=== PATIENT | male | born 1985 | race Caucasian/White ===

== ENCOUNTER 2017-02-16 20:41 | Emergency (ER) | payer SELFPAY ==
[~2017-02-16] VITALS: Ht 172.7 cm; Wt 82.0 kg
[2017-02-16] MEDS ORDERED: LANTUS2P SQ (21:11)
[2017-02-16] MEDS ORDERED: HUMA100I3 SQ (21:11)
[2017-02-16 21:13] VITALS: BP 141/87; PULSE 88; RESP 16; TEMP 98.6; O2SAT 98
--- NOTE | 2017-02-16 22:30 | PD ---
HPI Chief Complaint: Psychiatric Symptoms Time Seen by Provider: 22:00 Travel History International Travel<30 days: No Contact w/Intl Traveler<30days: No Traveled to known affect area: No History of Present Illness HPI Patient is a 31-year-old male who presents to emergency room for evaluation of suicidal evaluations. Patient reports that he posted a suicidal comment on Facebook today, reports that he was trying to get a reaction from someone. Reports that someone else ended up calling the police and he was brought to ER under Sanders act for psychiatric evaluation. Patient reports "I really don't want to hurt myself." Reports that the only drugs he uses is marijuana. PFSH Past Medical History Diabetes: Yes Patient Takes Glucophage: No Thyroid Disease: Yes (hypothyroid) Influenza Vaccination: No Social History Alcohol Use: No Tobacco Use: Yes Substance Use: Yes Allergies-Medications (Allergen,Severity, Reaction): Coded Allergies: No Known Allergies (Unverified , 02/16/17) Reported Meds & Prescriptions Reported Meds & Active Scripts Active Reported Humalog Kwikpen Pen Inj (Insulin Lispro (Human) Inj) 300 Unit/3 Ml Pen Unknown Dose SQ ACHS SLIDING SCALE Lantus Inj (Insulin Glargine) 1,000 Unit/10 Ml Vial 25 Units SQ BID Review of Systems General / Constitutional: No: Fever Eyes: No: Visual changes HENT: No: Headaches Cardiovascular: No: Chest Pain or Discomfort Respiratory: No: Shortness of Breath Gastrointestinal: No: Abdominal Pain Genitourinary: No: Dysuria Musculoskeletal: No: Pain Skin: No Rash Neurologic: No: Weakness Psychiatric: No: Depression, Suicidal Ideations, Homicidal Ideation Endocrine: No: Polydipsia Hematologic/Lymphatic: No: Easy Bruising Physical Exam Narrative GENERAL: NAD, Nontoxic SKIN: Focused skin assessment warm/dry. HEAD: Atraumatic. Normocephalic. EYES: Pupils equal and round. No scleral icterus. No injection or drainage. ENT: No nasal bleeding or discharge. Mucous membranes pink and moist. NECK: Trachea midline. No JVD. CARDIOVASCULAR: Regular rate and rhythm. No murmur appreciated. RESPIRATORY: No accessory muscle use. Clear to auscultation. Breath sounds equal bilaterally. GASTROINTESTINAL: Abdomen soft, non-tender, nondistended. Hepatic and splenic margins not palpable. MUSCULOSKELETAL: No obvious deformities. No clubbing. No cyanosis. No edema. NEUROLOGICAL: Awake and alert. No obvious cranial nerve deficits. Motor grossly within normal limits. Normal speech. PSYCHIATRIC: Appropriate mood and affect; insight and judgment normal. Denies suicidal or homicidal ideation Data Data Last Documented VS Vital Signs Date Time Temp Pulse Resp B/P Pulse Ox O2 Delivery O2 Flow Rate FiO2 02/16/17 21:13 98.6 88 16 141/87 98 Room Air Orders Complete Blood Count With Diff (02/16/17 22:00) Comprehensive Metabolic Panel (02/16/17 22:00) Psych Screen (02/16/17 22:00) Drug Screen, Random Urine (02/16/17 22:00) Alcohol (Ethanol) (02/16/17 22:00) Salicylates (Aspirin) (02/16/17 22:00) Tylenol (Acetaminophen) (02/16/17 22:00) MDM Medical Decision Making Medical Screen Exam Complete: Yes Emergency Medical Condition: Yes Interpretation(s) Vital Signs Date Time Temp Pulse Resp B/P Pulse Ox O2 Delivery O2 Flow Rate FiO2 02/16/17 21:13 98.6 88 16 141/87 98 Room Air Differential Diagnosis Differential includes depression, drug abuse Narrative Course Patient is a 31-year-old male who presents to emergency room under sanders act as he made a suicidal comment on Facebook today. Patient denies si at this time. Psychiatric screening labs ordered. Once medically cleared, will clear patient for psychiatric evaluation Anabel Jensen DO Feb 16, 2017 22:30
[2017-02-16 22:34] LABS: AUTOMATED NEUTROPHIL # 4.8 TH/MM3 (1.8-7.7); BASOPHIL # 0.1 TH/MM3 (0-0.2); BASOPHIL % 1.2 % (0.0-2.0); EOSINOPHIL # 0.4 TH/MM3 (0-0.4); EOSINOPHIL % 5.3 % (0.0-4.0); HEMO FLAGS DIFF FINAL; LYMPH % 28.6 % (9.0-44.0); LYMPHOCYTE # 2.3 TH/MM3 (1.0-4.8); MEAN CELL VOLUME 92.5 FL (80.0-100.0); MEAN CORPUSCULAR HEMOGLOBIN 32.3 PG (27.0-34.0); MEAN CORPUSCULAR HGB CONC 34.9 % (32.0-36.0); NEUT % 58.9 % (16.0-70.0); PLATELET COUNT 248 TH/MM3 (150-450); RED BLOOD COUNT 5.19 MIL/MM3 (4.50-5.90); RED CELL DISTRIBUTION WIDTH 14.2 % (11.6-17.2); WHITE BLOOD COUNT 8.2 TH/MM3 (4.0-11.0)
[2017-02-16 22:46] LABS: ALT (GPT) 23 U/L (12-78); ANION GAP 10 MEQ/L (5-15); AST (GOT) 22 U/L (15-37); BICARBONATE 30.3 MEQ/L (21.0-32.0); BLOOD UREA NITROGEN 23 MG/DL (7-18); CHLORIDE 97 MEQ/L (98-107); GLOMERULAR FILTRATION RATE 60 ML/MIN (>89); POTASSIUM 4.1 MEQ/L (3.5-5.1); SODIUM (NA) 137 MEQ/L (136-145)
[2017-02-16 22:50] LABS: ALKALINE PHOSPHATASE 75 U/L (45-117); TOTAL BILIRUBIN ADULT 0.8 MG/DL (0.2-1.0)
[2017-02-16 22:56] LABS: ACETAMINOPHEN LESS THAN 2.0 MCG/ML (10.0-30.0)
[2017-02-17] MEDS ORDERED: INSULIN HUMAN REGULAR 1,000 UNITS/10 ML VIAL SQ ONE (00:30)
[2017-02-17 00:53] LABS: AMPHETAMINE, URINE NEG (NEG); BARBITURATES, URINE NEG (NEG); COCAINE, URINE NEG (NEG)
[2017-02-17 03:10] VITALS: BP 137/79; PULSE 80; RESP 16; O2SAT 99
[2017-02-17 06:00] VITALS: BP 113/56; PULSE 71; RESP 16; O2SAT 99
[2017-02-17 10:47] VITALS: BP 125/75; PULSE 73; RESP 18; TEMP 97.1; O2SAT 99
[2017-02-17] MEDS ORDERED: INSULIN NovoLIN REGULAR SUPPLEMENTAL SCALE SQ SCH ×2 (11:15→16:00)
--- NOTE | 2017-02-17 13:55 | PD ---
History of Present Illness Chief Complaint: Psychiatric Symptoms Time Seen by Provider: 13:40 Travel History International Travel<30 Days: No Contact w/Intl Traveler<30days: No Known affected area: No Legal Status Legal Status: Sanders Act Sanders Act Signed By: Elaine Whitaker History of Present Illness: History of Present Illness HPI Patient is a 31-year-old male with previous reported psychiatric history of ADHD and depression who presents to emergency room under a Sanders Act initiated by RYAN. The BA alleges that he stated he was depressed about a female and that he posted suicidal messages on social media. The patient was monitored in [facility] and presented no suicidality or no behavioral concerns. he ate well and slept well. EMR is reviewed. No previous contact with [facility] psychiatry dept. Current toxicology is positive for cannabinoids. Patient is seen with Jackie HARDING present. He is alert adn oriented, calm and cooperative. speech is clear and logical. There is no indication that he is experiencing any hallucinations, no delusions and no paranoia. He denies any acute psychiatric symptoms. No depression or anxiety. He states " I was trying to get a reaction out of someone and I got the wrong reaction. I don't want to ". Patient is future oriented and wants to be discharged. he is working and wants to be able to return to work. He has ended the relationship that he sent the messages to . " I deleted her contact information and I am ready to move on ". ED note is reviewed and he reported the same info to ED providers. In terms of previous psychiatric treatment reports that he was treated as a child for ADHD and has taken Prozac and Xanax in the past. He has not been in treatment in at least 3 years. PFSH Past Medical History Diabetes: Yes Patient Takes Glucophage: No Thyroid Disease: Yes (hypothyroid) Influenza Vaccination: No Psychiatric History Psychiatric History Hx Psychiatric Treatment: HX: DEPRESSION History of Inpatient Treatment: No Guns or firearms in home: No Social History Single male. Lives with his boss. 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 Hx Alcohol Use: No Hx Tobacco Use: Yes Hx Substance Use: No Substance Use Type: Marijuana Hx of Substance Use Treatment: No Family Psychiatric History Negative Allergies-Medications (Allergen,Severity, Reaction): Coded Allergies: No Known Allergies (Unverified , 02/16/17) Reported Meds & Prescriptions Reported Meds & Active Scripts Active Reported Humalog Kwikpen Pen Inj (Insulin Lispro (Human) Inj) 300 Unit/3 Ml Pen Unknown Dose SQ ACHS SLIDING SCALE Lantus Inj (Insulin Glargine) 1,000 Unit/10 Ml Vial 25 Units SQ BID Review of Systems Except as stated in HPI: all other systems reviewed are Neg Exam Alert: Yes [place]: Person Mood: Calm Affect: Appropriate Eye Contact: Normal Memory Intact: Comment (No impairmetn) Hallucinations: Other (negative) Delusions: No Suicidal: Ideation (Negative) Homicidal: Ideation (Negative) Insight/Judgement Fair. Not impaired. MDM Medical Decision Making Medical Record Reviewed: Yes Assessment/Plan 31 year old male who presents under a BA after he allegedly made some statements on social media indicating he was suicidal in an attempt at getting a reaction from a girlfriend. He denies that he was suicidal and he has not presented any suicidality while here in [facility]. At this time the patient does not meet criteria for BA. The BA will be lifted and he will be discharged. Instructed to return to ED if any changes. Orders Complete Blood Count With Diff (02/16/17 22:00) Comprehensive Metabolic Panel (02/16/17 22:00) Psych Screen (02/16/17 22:00) Drug Screen, Random Urine (02/16/17 22:00) Alcohol (Ethanol) (02/16/17 22:00) Salicylates (Aspirin) (02/16/17 22:00) Tylenol (Acetaminophen) (02/16/17 22:00) Insulin Human Regular Inj (Novolin R Inj (02/17/17 00:30) Diet Diabetic (02/17/17 Breakfast) Insulin Human Reg Supp Scale (Novolin R (02/17/17 16:00) Insulin Human Reg Supp Scale (Novolin R (02/17/17 11:15) Diet Diabetic (02/17/17 Lunch) Results Vital Signs Date Time Temp Pulse Resp B/P Pulse Ox O2 Delivery O2 Flow Rate FiO2 02/17/17 10:47 97.1 73 18 125/75 99 Room Air 02/17/17 06:00 71 16 113/56 99 Room Air 02/17/17 03:10 80 16 137/79 99 Room Air 02/16/17 21:13 98.6 88 16 141/87 98 Room Air Laboratory Tests Test 02/16/17 02/17/17 22:15 00:30 White Blood Count 8.2 Red Blood Count 5.19 Hemoglobin 16.8 Hematocrit 48.0 Mean Corpuscular Volume 92.5 Mean Corpuscular Hemoglobin 32.3 Mean Corpuscular Hemoglobin 34.9 Concent Red Cell Distribution Width 14.2 Platelet Count 248 Mean Platelet Volume 8.5 Neutrophils (%) (Auto) 58.9 Lymphocytes (%) (Auto) 28.6 Monocytes (%) (Auto) 6.0 Eosinophils (%) (Auto) 5.3 Basophils (%) (Auto) 1.2 Neutrophils # (Auto) 4.8 Lymphocytes # (Auto) 2.3 Monocytes # (Auto) 0.5 Eosinophils # (Auto) 0.4 Basophils # (Auto) 0.1 CBC Comment DIFF FINAL Differential Comment Sodium Level 137 Potassium Level 4.1 Chloride Level 97 Carbon Dioxide Level 30.3 Anion Gap 10 Blood Urea Nitrogen 23 Creatinine 1.40 Estimat Glomerular Filtration 60 Rate Random Glucose 313 Calcium Level 9.4 Total Bilirubin 0.8 Aspartate Amino Transf 22 (AST/SGOT) Alanine Aminotransferase 23 (ALT/SGPT) Alkaline Phosphatase 75 Total Protein 8.1 Albumin 4.2 Salicylates Level 2.7 Acetaminophen Level LESS THAN 2.0 Ethyl Alcohol Level LESS THAN 3 Urine Opiates Screen NEG Urine Barbiturates Screen NEG Urine Amphetamines Screen NEG Urine Benzodiazepines Screen NEG Urine Cocaine Screen NEG Urine Cannabinoids Screen POS Diagnosis Primary Impression: Adjustment disorder Psychiatrically Cleared: Yes Departure Forms: Tests/Procedures Patient Instructions: General Instructions, Stress (ED) Disposition: 01 DISCHARGE HOME Problem Qualifiers Primary Impression: Adjustment disorder Qualified Code: F43.20 - Adjustment disorder, unspecified type Sunni Lawrence Feb 17, 2017 13:55
== END 2017-02-17 14:26 | disposition home or self-care (01) ==
LOC: NEDAMB 20:41 → NEPJ 02-17 14:26
DX: F43.20 Adjustment disorder, unspecified (principal); E11.9 Type 2 diabetes mellitus without complications; E03.9 Hypothyroidism, unspecified; F32.9 Major depressive disorder, single episode, unspecified; F90.9 Attention-deficit hyperactivity disorder, unspecified type; Z79.4 Long term (current) use of insulin; Z79.899 Other long term (current) drug therapy; Z72.0 Tobacco use
CPT/HCPCS: 80053; 80307; 85025; 96372; 99284; J1815

== ENCOUNTER 2017-05-12 22:13 | Emergency (ER) | payer SELFPAY ==
[~2017-05-12] VITALS: Ht 175.3 cm; Wt 77.0 kg
[~2017-05-12 22:13] MED LIST: HUMA100I3 SQ; LANTUS2P SQ
[2017-05-12 22:21] VITALS: BP 148/88; PULSE 80; RESP 20; TEMP 98.8; O2SAT 94
[2017-05-13] MEDS ORDERED: SODIUM CHLOR 0.9% 1000 ML INJ 1,000 ML IV ONE (00:45)
--- NOTE | 2017-05-13 00:50 | PD ---
HPI Chief Complaint: Diabetic Time Seen by Provider: 00:35 Travel History International Travel<30 days: No Contact w/Intl Traveler<30days: No Traveled to known affect area: No History of Present Illness HPI 31yo M with PMH of IDDM presents to the ED from [facility] because his blood sugar was not controlled. Pt was initially herron acted for suicidal ideation but herron act was lifted and pt is no longer suicidal. He states that they were feeding him the wrong food. Pt states he takes lantus 25 units at night and in the morning and then humalog. Said blood glucose was high and they gave him 10 units of a short acting insulin. Did not get lantus tonight. Denies any fever, cough, chest pain, sob, n/v, abdominal pain, focal weakness or numbness. Pt states that he has to be here for 12 hours and then can go back to [facility]. PFSH Past Medical History Diabetes: Yes Patient Takes Glucophage: No Thyroid Disease: Yes (hypothyroid) Tetanus Vaccination: > 5 Years Influenza Vaccination: No Social History Alcohol Use: Yes (rarely) Tobacco Use: Yes Substance Use: No Allergies-Medications (Allergen,Severity, Reaction): Coded Allergies: No Known Allergies (Unverified , 05/12/17) Reported Meds & Prescriptions Reported Meds & Active Scripts Active Reported Humalog Kwikpen Pen Inj (Insulin Lispro (Human) Inj) 300 Unit/3 Ml Pen Unknown Dose SQ ACHS SLIDING SCALE Lantus Inj (Insulin Glargine) 1,000 Unit/10 Ml Vial 25 Units SQ BID Review of Systems Except as stated in HPI: all other systems reviewed are Neg Physical Exam Narrative GENERAL: 31yo M not in distress. SKIN: Focused skin assessment warm/dry. HEAD: Atraumatic. Normocephalic. CARDIOVASCULAR: Regular rate and rhythm. No murmur appreciated. RESPIRATORY: No accessory muscle use. Clear to auscultation. Breath sounds equal bilaterally. GASTROINTESTINAL: Abdomen soft, non-tender, nondistended. No rebound tenderness or guarding. MUSCULOSKELETAL: No obvious deformities. No clubbing. No cyanosis. No edema. NEUROLOGICAL: Awake and alert. No obvious cranial nerve deficits. Motor grossly within normal limits. Normal speech. PSYCHIATRIC: Appropriate mood and affect; insight and judgment normal. Data Data Last Documented VS Vital Signs Date Time Temp Pulse Resp B/P (MAP) Pulse Ox O2 Delivery O2 Flow Rate FiO2 05/12/17 22:21 98.8 80 20 148/88 (108) 94 Room Air Orders Orders Complete Blood Count With Diff (05/13/17 00:42) Basic Metabolic Panel (Bmp) (05/13/17 00:42) Alcohol (Ethanol) (05/13/17 00:42) Urinalysis - C+S If Indicated (05/13/17 00:42) Sodium Chlor 0.9% 1000 Ml Inj (Ns 1000 M (05/13/17 00:45) Blood Glucose (05/13/17 00:42) Insulin Human Regular Inj (Novolin R Inj (05/13/17 03:15) Blood Glucose (05/13/17 03:19) Ed Discharge Order (05/13/17 05:09) Labs Laboratory Tests Test 05/13/17 01:00 White Blood Count 5.9 TH/MM3 Red Blood Count 5.01 MIL/MM3 Hemoglobin 15.2 GM/DL Hematocrit 45.0 % Mean Corpuscular Volume 89.7 FL Mean Corpuscular Hemoglobin 30.3 PG Mean Corpuscular Hemoglobin Concent 33.8 % Red Cell Distribution Width 13.9 % Platelet Count 211 TH/MM3 Mean Platelet Volume 7.5 FL Neutrophils (%) (Auto) 64.4 % Lymphocytes (%) (Auto) 19.6 % Monocytes (%) (Auto) 12.5 % Eosinophils (%) (Auto) 1.3 % Basophils (%) (Auto) 2.2 % Neutrophils # (Auto) 3.8 TH/MM3 Lymphocytes # (Auto) 1.2 TH/MM3 Monocytes # (Auto) 0.7 TH/MM3 Eosinophils # (Auto) 0.1 TH/MM3 Basophils # (Auto) 0.1 TH/MM3 CBC Comment DIFF FINAL Differential Comment Urine Color LIGHT-YELLOW Urine Turbidity CLEAR Urine pH 5.5 Urine Specific Coleman 1.032 Urine Protein NEG mg/dL Urine Glucose (UA) 1000 mg/dL Urine Ketones NEG mg/dL Urine Occult Blood NEG Urine Nitrite NEG Urine Bilirubin NEG Urine Urobilinogen LESS THAN 2.0 MG/DL Urine Leukocyte Esterase NEG Urine RBC LESS THAN 1 /hpf Urine WBC LESS THAN 1 /hpf Microscopic Urinalysis Comment CULT NOT INDICATED Blood Urea Nitrogen 27 MG/DL Creatinine 1.45 MG/DL Random Glucose 328 MG/DL Calcium Level 9.1 MG/DL Sodium Level 134 MEQ/L Potassium Level 4.0 MEQ/L Chloride Level 98 MEQ/L Carbon Dioxide Level 27.4 MEQ/L Anion Gap 9 MEQ/L Estimat Glomerular Filtration Rate 58 ML/MIN Ethyl Alcohol Level LESS THAN 3 MG/DL MDM Medical Decision Making Medical Screen Exam Complete: Yes Emergency Medical Condition: Yes Differential Diagnosis Uncontrolled DM vs. DKA Narrative Course 31yo M with DM was sent by Uriah Hankins because blood glucose was uncontrolled. Labs reviewed, no leukocytosis. Glucose elevated at 328. No increased anion gap. CO2 27.4. Creatinine elevated at 1.45 but at baseline. Alcohol negative. UA negative for leukocyte. culture not indicated. Pt given NS IVF and regular insulin 8 units. Pt is to follow up with his comfort station supervisor as outpatient. Repeat blood glucose 180. Pt denies any suicidal ideations. No symptoms. Return precautions given. I was informed by nurse that he does indeed have to stay here for 12 hours before he can return to [facility]. Diagnosis Primary Impression: Uncontrolled blood glucose Patient Instructions: General Instructions Departure Forms: Tests/Procedures Additional Instructions: Please take your medications as instructed by your comfort station supervisor. Please follow up with your comfort station supervisor as outpatient. Return to the ED if symptoms worsen. Med/Other Pt SpecificInfo: No Change to Meds Disposition: 01 DISCHARGE HOME Condition: Stable Padma Morris May 13, 2017 00:50
[2017-05-13 01:14] LABS: AUTOMATED NEUTROPHIL # 3.8 TH/MM3 (1.8-7.7); BASOPHIL # 0.1 TH/MM3 (0-0.2); BASOPHIL % 2.2 % (0.0-2.0); EOSINOPHIL # 0.1 TH/MM3 (0-0.4); EOSINOPHIL % 1.3 % (0.0-4.0); HEMO FLAGS DIFF FINAL; LYMPH % 19.6 % (9.0-44.0); LYMPHOCYTE # 1.2 TH/MM3 (1.0-4.8); MEAN CELL VOLUME 89.7 FL (80.0-100.0); MEAN CORPUSCULAR HEMOGLOBIN 30.3 PG (27.0-34.0); MEAN CORPUSCULAR HGB CONC 33.8 % (32.0-36.0); MONO % 12.5 % (0.0-8.0); NEUT % 64.4 % (16.0-70.0); PLATELET COUNT 211 TH/MM3 (150-450); RED BLOOD COUNT 5.01 MIL/MM3 (4.50-5.90); RED CELL DISTRIBUTION WIDTH 13.9 % (11.6-17.2); WHITE BLOOD COUNT 5.9 TH/MM3 (4.0-11.0)
[2017-05-13 01:16] LABS: BLOOD, URINE NEG (NEG); GLUCOSE,URINE 1000 mg/dL (NEG); KETONE, URINE NEG (NEG); NITRITE,URINE NEG (NEG); PH, URINE 5.5 (5.0-8.5); URINE COLOR LIGHT-YELLOW (YELLW/STRAW)
[2017-05-13 01:25] LABS: COMMENT (UR) CULT NOT INDICATED; CULTURE IF INDICATED CULT NOT INDICATED
[2017-05-13 01:28] LABS: ALCOHOL LESS THAN 3 MG/DL (0-5); ANION GAP 9 MEQ/L (5-15); BICARBONATE 27.4 MEQ/L (21.0-32.0); BLOOD UREA NITROGEN 27 MG/DL (7-18); CHLORIDE 98 MEQ/L (98-107); GLOMERULAR FILTRATION RATE 58 ML/MIN (>89); SODIUM (NA) 134 MEQ/L (136-145)
[2017-05-13] MEDS ORDERED: INSULIN HUMAN REGULAR 1,000 UNITS/10 ML VIAL SQ ONE (03:15)
[2017-05-13 07:25] VITALS: BP 130/81; PULSE 78; RESP 17; TEMP 97.8; O2SAT 99
[2017-05-13 09:43] VITALS: BP 124/81; TEMP 97.8
== END 2017-05-13 09:44 | disposition home or self-care (01) ==
LOC: NEPC 22:13
DX: E11.65 Type 2 diabetes mellitus with hyperglycemia (principal); Z79.4 Long term (current) use of insulin; E03.9 Hypothyroidism, unspecified
CPT/HCPCS: 80048; 80307; 81001; 85025; 96360; 96372; 99284; J1815; J7030